=== PATIENT | male | born 1985 | race Caucasian/White ===

== ENCOUNTER 2016-12-08 13:18 | Emergency (ER) | payer SELFPAY ==
[~2016-12-08] VITALS: Ht 182.9 cm; Wt 100.0 kg
[~2016-12-08 13:18] MED LIST: FLEXERIL 1010 MG/TAB PO; NAPROSYN500 MG PO; NO HOME MEDICATIONS; NORCO 325 MG-51 TAB PO; PERCOCET 325 MG1 TA2 PO
[2016-12-08 13:21] VITALS: BP 155/100; PULSE 86; TEMP 99
[2016-12-08] MEDS ORDERED: XANAX2 MG PO (13:22)
[2016-12-08] MEDS ORDERED: ULTRAM 50MG TAB50 MG PO (14:06)
[2016-12-08] MEDS ORDERED: CLEOCIN HC150 MG/CAP PO (14:06)
== END 2016-12-08 14:17 | disposition home or self-care (01) ==
LOC: COL.ER 13:18
DX: K05.10 Chronic gingivitis, plaque induced (principal)

== ENCOUNTER 2021-08-30 05:21 | Emergency (ER) | payer SELFPAY ==
[~2021-08-30] VITALS: Ht 185.4 cm; Wt 159.1 kg
[~2021-08-30 05:21] MED LIST changes: +CLEOCIN HC150 MG/CAP PO; +ULTRAM 50MG TAB50 MG PO; +XANAX2 MG PO
[2021-08-30 05:27] VITALS: TEMP 99.1
[2021-08-30 05:52] LABS: BASO # 0.1 (0.0-0.2); BASO % 0.6 % (0.0-2.0); EOS # 0.1 (0.0-0.7); EOS % 0.6 % (0-4.0); GRAN # 5.6 (1.4-6.5); GRAN % 63.2 % (42.2-75.2); HEMATOCRIT 48.9 % (42.0-52.0); HEMOGLOBIN 16.9 g/dl (13.5-18.0); LYMPH # 2.4 (1.2-3.4); LYMPH % 26.8 % (20.0-51.0); MEAN CELL VOLUME 88 fl (80.0-100.0); MEAN CORPUSCULAR HEMOGLOBIN 31 pg (27.0-31.0); MEAN CORPUSCULAR HGB CONC 35 g/dl (33.0-37.0); MEAN PLATELET VOLUME 10.8 fl (7.4-10.4); MONO # 0.7 (0.1-0.6); MONO % 8.3 % (1.7-9.3); PLATELET COUNT 233 K/mm3 (130-400); RED BLOOD COUNT 5.54 M/mm3 (4.20-5.60); REDCELL DISTRIBUTION WIDTH-CV 12.6 % (11.5-14.5)
[2021-08-30 06:14] LABS: ALANINE AMINOTRANSFERASE 39 U/L (0-55); ALBUMIN 3.7 gm/dL (3.5-5.0); ALKALINE PHOSPHATASE 64 U/L (0-750); ANION GAP 12 mmol/L; AST,SGOT 27 U/L (5-34); BILIRUBIN,TOTAL 0.6 mg/dL (0.2-1.2); BLOOD UREA NITROGEN 11 mg/dL (9-21); CALCIUM 9.4 mg/dL (8.4-10.2); CARBON DIOXIDE 22 mEq/L (22-29); CHLORIDE 101 mmol/L (98-107); CREATININE, serum 0.94 mg/dL (0.72-1.25); GLUCOSE 306 mg/dL (70-99); POTASSIUM 4.2 mmol/L (3.5-4.5); SODIUM 135 mmol/L (136-145); TOTAL PROTEIN 7.5 gm/dL (6.2-8.1)
[2021-08-30 06:14] LABS: INR 1.2 (0.8-3.0); PROTHROMBIN TIME 13.4 SECONDS (9.7-12.8)
[2021-08-30 06:16] LABS: PARTIAL THROMBOPLASTIN TIME 30.2 SECONDS (26.0-37.0)
[2021-08-30 06:17] LABS: D-DIMER < 200.00 ng/mLDDu (200-230)
[2021-08-30 06:34] LABS: THYROID STIMULATING HORMONE 1.461 uIU/mL (0.350-4.940)
[2021-08-30 06:36] LABS: TROPONIN-I < 0.010 ng/mL (0.00-0.033)
[2021-08-30 07:05] VITALS: BP 130/98; PULSE 105
[2021-08-30] MEDS ORDERED: ZOFRAN ODT4 MG PO (07:05)
== END 2021-08-30 07:06 | disposition home or self-care (01) ==
LOC: COL.ER 05:21
PROVIDERS: Student in an Organized Health Care Education/Training Program
DX: R51.9 Headache, unspecified (principal); R73.9 Hyperglycemia, unspecified; R53.81 Other malaise; Z20.822 Contact with and (suspected) exposure to COVID-19; Z86.69 Personal history of other diseases of the nervous system and sense organs
CPT/HCPCS: J1885; J2405; J7030

== ENCOUNTER 2022-06-08 16:55 | Emergency (ER) | payer SELFPAY ==
[~2022-06-08] VITALS: Ht 185.4 cm; Wt 140.9 kg
[~2022-06-08 16:55] MED LIST changes: +ZOFRAN ODT4 MG PO
[2022-06-08 17:02] VITALS: TEMP 98.6
[2022-06-08 17:48] VITALS: BP 136/88; PULSE 92
== END 2022-06-08 17:50 | disposition home or self-care (01) ==
LOC: COL.ER 16:55
DX: S60.031A Contusion of right middle finger without damage to nail, initial encounter (principal); S60.041A Contusion of right ring finger without damage to nail, initial encounter; S60.051A Contusion of right little finger without damage to nail, initial encounter; Z28.310 Unvaccinated for COVID-19; W22.01XA Walked into wall, initial encounter
CPT/HCPCS: J1885